=== PATIENT | male | born 2000 | race Caucasian/White ===

== ENCOUNTER 2021-05-30 14:39 | Emergency (ER) | payer OTHER, MEDICAID, SELFPAY ==
[2021-05-30 14:56] VITALS: BP 118/58; PULSE 74; RESP 17; TEMP 36.6; O2SAT 98; BMI 20.9
--- NOTE | 2021-05-30 16:58 | DI.RAD.S_ITS ---
PROCEDURE: XR WRIST LT MIN 3V INDICATIONS: pain TECHNIQUE: 3 views of the wrist were acquired. COMPARISON: None. FINDINGS: Bones: No fractures or dislocations. No suspicious bony lesions. Soft tissues: No suspicious soft tissue calcifications. IMPRESSION: Unremarkable left wrist radiographs Approved by: Maikol Altman M.D. on 05/30/2021 at 16:24
--- NOTE | 2021-05-30 17:15 | ED_ITS ---
HPI - General Adult General Chief complaint: Extremity Injury, Upper Stated complaint: possible fluid in wrist Time Seen by Provider: 05/30/21 17:09 Source: patient Mode of arrival: Ambulatory History of Present Illness HPI narrative: 21-year-old male here for evaluation of left wrist pain. He states at the end of last week he was carrying a heavy object with another person at slipped and twisted his wrist. He has had an issue with his wrist in the past but that was several years ago. He thinks that since that time he has noticed some swelling on the back of his wrist. He has discomfort with palpation of the wrist and also flexion extension. Has not tried anything for the symptoms prior to arrival. Related Data Home Medications Medication Instructions Recorded Confirmed ibuprofen 600 mg tablet 600 mg PO QID 05/30/21 05/30/21 Allergies Allergy/AdvReac Type Severity Reaction Status Date / Time Sulfa (Sulfonamide Allergy Verified 05/30/21 15:00 Antibiotics) Review of Systems Constitutional Constitutional: Reports as per HPI Musculoskeletal Musculoskeletal: Reports as per HPI Integumentary/Breasts Skin/Breast: Reports as per HPI Neurologic Neurologic: Reports system reviewed and no additional complaints, except as documented Hematologic/Lymphatic On Anticoagulants: No Patient History Medical History Healthy adult Social History Smoking Status: Current every day smoker Smoking Status: Current every day smoker tobacco type: cigarettes alcohol intake frequency: holidays/special occasions only Substance Use Type: marijuana Exam Initial Vital Signs Initial Vital Signs: Vital Signs Temperature 97.8 F 05/30/21 14:56 Pulse Rate 74 05/30/21 14:56 Respiratory Rate 17 05/30/21 14:56 Blood Pressure 118/58 L 05/30/21 14:56 Pulse Oximetry 98 05/30/21 14:56 HENMT Head: normal to inspection and normocephalic Cardio Pulses: radial pulses present on the left Skin General: no rashes or lesions noted Neuro Sensory Exam: no sensory deficits noted Extrem Other: Patient with tenderness to palpation along the distal radius and the metacarpals of the left wrist. Located mostly on the dorsum of the wrist. No tenderness on the volar aspect. No snuffbox tenderness. Procedures Orthopedic Splinting/Casting Injury #1: Side: left Upper Extremity Injury Location: wrist Upper Extremity Immobilizer: wrist splint Post splinting neuro exam: intact Post splinting vascular exam: intact Placed by: Nursing Course Orders Ordered: ED Orders 05/30/21 16:58 XR wrist LT min 3V Stat Vital Signs Vital signs: Vital Signs - 8 hr 05/30/21 14:56 Temperature 97.8 F Pulse Rate 74 Respiratory Rate 17 Blood Pressure 118/58 L Pulse Oximetry 98 Medical Decision Making Imaging Data Extremity x-ray #1: Radiologist's Impression: [address] [id number] ReportSigned Patient: Matt Bowles [facility]#: [id number]: 2000Acct:[id number]/Sex: 21 / MDate of Service: 05/30/21Loc: EDAccession Number: [id number] Procedure: XR wrist LT min 3V Ordering Provider: Gabriel Quezada D.O. PROCEDURE: XR WRIST LT MIN 3V INDICATIONS: pain TECHNIQUE: 3 views of the wrist were acquired. COMPARISON: None. FINDINGS: Bones: No fractures or dislocations. No suspicious bony lesions. Soft tissues: No suspicious soft tissue calcifications. IMPRESSION: Unremarkable left wrist radiographs Approved by: Maikol Altman M.D. on 05/30/2021 at 16:24 MDM Narrative Medical decision making narrative: Neurovascularly intact. No fractures noted on the x-rays. He was placed in a removable wrist splint for his comfort. We did discuss conservative measures at home and return precautions. Patient expressed understanding agreement. Discharge Plan Departure Patient Disposition: Home Clinical Impression: Sprain and strain of wrist Instructions: DI for Wrist Sprain, How To Perform RICE (Rest, Ice, Compress, Elevate) Activity Restrictions/Additional Instructions: Tomorrow I do recommend you contact the health resource is coordinated [phone]. This individual can help you establish a primary doctor in the local area. Keep the wrist splint on except to shower and wash your hands. You can take it off to ice the area. Return to the emergency department for any new symptoms. Prescriptions: No Action ibuprofen 600 mg Tablet 600 mg PO QID RF: 0
== END 2021-05-30 17:38 | disposition home or self-care (01) ==
PROVIDERS: Emergency Provider Emergency Medicine
DX: S63.502A Unspecified sprain of left wrist, initial encounter (principal); S66.912A Strain of unspecified muscle, fascia and tendon at wrist and hand level, left hand, initial encounter; X50.0XXA Overexertion from strenuous movement or load, initial encounter
CPT/HCPCS: 73110; 99283

== ENCOUNTER 2021-08-12 04:55 | Emergency (ER) | payer OTHER, MEDICAID, SELFPAY ==
[2021-08-12 05:05] VITALS: BP 139/83; PULSE 110; RESP 18; O2SAT 99
--- NOTE | 2021-08-12 05:20 | PC.NURSE ---
His daughter has covid and he wants to be tested,able to tolerate liquids by mouth.
[2021-08-12 05:26] LABS: COVID19 -Nasal RAPID Negative (Negative)
--- NOTE | 2021-08-12 05:39 | ED.URI ---
HPI - URI/Sore Throat General Chief Complaint: Upper Respiratory Symptoms Stated Complaint: sore throat x2 days Time Seen by Provider: 08/12/21 05:11 Source: patient Mode of arrival: Ambulatory Limitations: no limitations and language barrier History of Present Illness HPI Narrative: Patient is a 21-year-old male history of asthma presenting with wanting a COVID test. He states the baby daughter tested positive for COVID today. He complains of a sore throat for the last 2 days. No fever chills cough shortness of breath. He is a vaccinated, but interested in getting it. He denies any fever or chills. No other symptoms at this time Related Data Home Medications Medication Instructions Recorded Confirmed ibuprofen 600 mg tablet 600 mg PO QID 05/30/21 05/30/21 Allergies Allergy/AdvReac Type Severity Reaction Status Date / Time Sulfa (Sulfonamide Allergy Verified 05/30/21 15:00 Antibiotics) Review of Systems Review of Systems Narrative: GENERAL: Denies chills,fever HEENT: See HPI RESPIRATORY: Denies dyspnea, cough, wheezing CARDIOVASCULAR: Denies chest pain, palpitations GASTROINTESTINAL: Denies nausea, vomiting MUSCULOSKELETAL: Denies extremity pain, injury SKIN: No rash, no laceration, no pruritus NEUROLOGIC: Denies weakness, dizziness, headache, numbness 8 point review of systems is negative except for those stated above and HPI Patient History Medical History Healthy adult Social History Smoking Status: Current every day smoker Smoking Status: Current every day smoker tobacco type: cigarettes alcohol intake frequency: holidays/special occasions only Substance Use Type: marijuana Exam Initial Vital Signs Initial Vital Signs: Vital Signs Pulse Rate 110 H 08/12/21 05:05 Respiratory Rate 18 08/12/21 05:05 Blood Pressure 139/83 08/12/21 05:05 Pulse Oximetry 99 08/12/21 05:05 GENERAL: Well-appearing, well-nourished and in no acute distress. HEENT: Head atraumatic,EOMI, pupils reactive, no JVD neck supple PHARYNX: Minimal erythema no tonsillar exudate no uvular deviation CARDIOVASCULAR: Regular rate and rhythm without murmurs, rubs or gallops. RESPIRATORY: Breath sounds equal bilaterally, no wheezes rales or rhonchi. EXTREMITIES: Normal range of motion, no clubbing or edema. Neurovascularly intact NEUROLOGICAL: Alert and oriented x4. SKIN: Warm, dry, no laceration, no petechiae, no rashes or lesions. Course Orders Ordered: ED Orders 08/12/21 05:08 COVID19 -Nasal swab/Pre-Proc Stat Vital Signs Vital signs: Vital Signs - 8 hr 08/12/21 05:05 Pulse Rate 110 H Respiratory Rate 18 Blood Pressure 139/83 Pulse Oximetry 99 MDM - URI/Sore Throat Lab Data Labs: Lab Results 08/12/21 Range/Units 05:08 SARS-CoV-2 (PCR) Negative (Negative) MDM Narrative Medical decision making narrative: Patient is unvaccinated with a close COVID contact. I presume that his COVID test will be positive over the next several days. I discussed this with him and encouraged him to stay quarantined and follow CDC recommendations. Discharge Plan Departure Patient Disposition: Home Clinical Impression: Upper respiratory infection Instructions: DI for COVID-19 (Suspected or Confirmed ) Activity Restrictions/Additional Instructions: *You have been diagnosed with presumed COVID *What to do: at this time her COVID test is negative however I strongly recommend that you get retested in about 3-5 days. I suspect that it will be positive. Please stay home in quarantine for 14 days. Monitor your oxygen levels if it is dropping below 90% then return the emergency department *Continue to take medications as directed *Follow up with your primary care provider in 2-3 days *Return to ER if you should have increasing shortness of breath, oxygen less than 90%, or any new, worsening or concerning symptoms Prescriptions: No Action ibuprofen 600 mg Tablet 600 mg PO QID RF: 0 Referrals: [facility] Resources [Outside]
[2021-08-12 05:47] VITALS: PULSE 90; RESP 18; O2SAT 100
== END 2021-08-12 05:48 | disposition home or self-care (01) ==
PROVIDERS: Emergency Provider Emergency Medicine
DX: J06.9 Acute upper respiratory infection, unspecified (principal); Z20.822 Contact with and (suspected) exposure to COVID-19
CPT/HCPCS: 87635; 99281; C9803